=== PATIENT | female | born 1970 | race Caucasian/White ===

== ENCOUNTER 2018-06-29 06:05 | Emergency (ER) | payer MEDICAID, OTHER ==
[2018-06-29] MEDS: ACETAMINOPHEN 325 MG TAB PO (06:43)
== END 2018-06-29 07:45 | disposition home or self-care (01) ==
LOC: FTE 06:05
DX: S09.90XA Unspecified injury of head, initial encounter (principal); R51 Headache; V49.50XA Passenger injured in collision with unspecified motor vehicles in traffic accident, initial encounter
CPT/HCPCS: 70450; 81025; 99284-25